=== PATIENT | male | born 1990 | race American Indian/Alaskan Native ===

== ENCOUNTER 2017-05-25 17:08 | Emergency (ER) | payer OTHER ==
[2017-05-25 17:14] VITALS: BMI 26.4
[2017-05-25 17:15] VITALS: RESP 16; TEMP 98.5
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
[2017-05-25 18:42] VITALS: BP 128/81; PULSE 85
[2017-05-27 12:43] VITALS: O2SAT 100
== END 2017-05-25 18:42 | disposition home or self-care (01) ==
LOC: C.ER 17:08
DX: M54.6 Pain in thoracic spine (principal); V43.52XA Car driver injured in collision with other type car in traffic accident, initial encounter; Y92.410 Unspecified street and highway as the place of occurrence of the external cause
CPT/HCPCS: 96372; 99284; J1885